=== PATIENT | female | born 2000 | race Two or more races ===

== ENCOUNTER 2025-01-12 05:25 | Emergency (ER) | payer BC ==
[~2025-01-12] VITALS: Ht 152.4 cm; Wt 69.9 kg
[2025-01-12] MEDS ORDERED: KETOROLAC TROMETHAMINE 60 MG VIAL IM STA (06:58)
[2025-01-12] MEDS ORDERED: ORPHENADRINE CITRATE 30 MG/ML AMPUL IM STA (06:58)
== END 2025-01-12 10:54 ==
LOC: ER 05:54
DX: R51.9 Headache, unspecified (principal)